=== PATIENT | male | born 1995 | race Two or more races ===

== ENCOUNTER 2017-02-07 23:05 | Emergency (ER) | payer MEDICAID ==
[~2017-02-07] VITALS: Ht 175.3 cm; Wt 63.5 kg
[2017-02-08] MEDS ORDERED: SODIUM CHLORIDE 0.9% 1,000 ML IVB ONE (01:15)
[2017-02-08 01:39] LABS: Basophils # (auto) 0 uL; Basophils % (auto) 0.3 % (0.0-2.0); CONDITION Y; Eosinophils # (auto) 0 uL; Eosinophils % (auto) 0.4 % (0.0-7.0); Hematocrit 46.8 % (41.0-53.0); Hemoglobin 16.3 g/dL (13.5-17.5); Lymphocytes # (auto) 1.2 uL; Lymphocytes % (auto) 13.1 % (10.0-50.0); Mean Corpuscular Hemoglobin 33.1 pg (28.0-32.0); Mean Corpuscular Hgb Conc. 34.7 g/dL (32.0-36.0); Mean Corpuscular Volume 95.2 fL (80.0-100.0); Mean Platelet Volume 8.5 fL (7.4-10.4); Monocytes % (auto) 10.4 % (0.0-12.0); Neutrophils % (auto) 75.8 % (37.0-80.0); Platelet Count (auto) 177 10^3/uL (140-450); Red Cell Distribution Width 13.1 % (11.6-16.0); White Blood Cell 9.2 10^3/uL (4.4-10.8)
[2017-02-08 01:50] LABS: Albumin 3.6 g/dL (3.4-5.0); BUN/Creatinine Ratio 14.6; Calcium 8.3 mg/dL (8.5-10.1); Potassium 3.5 mmol/L (3.5-5.1)
[2017-02-08 01:53] LABS: Bilirubin, Total 0.8 mg/dL (0.2-1.0); Total Protein 6.5 g/dL (6.4-8.2)
[2017-02-08 05:23] VITALS: BP 101/63
== END 2017-02-08 05:36 | disposition home or self-care (01) ==
LOC: EDBD 23:05 → ER 23:05
DX: R55 Syncope and collapse (principal); F12.10 Cannabis abuse, uncomplicated
CPT/HCPCS: 36415; 80053; 82962; 85025; 93005; 96360; 99285; J7030